=== PATIENT | male | born 1975 | race Caucasian/White ===

== ENCOUNTER 2024-03-07 15:08 | Inpatient (IN) | payer OTHER ==
[2024-03-07 18:34] VITALS: BMI 29.6
[2024-03-07] MEDS ORDERED: BISMUTH SUBSALICYLATE 524 MG/30 ML PO PRN (21:39)
[2024-03-07] MEDS ORDERED: LOPERAMIDE HCL 2 MG CAPSULE PO PRN (21:39)
[2024-03-07] MEDS ORDERED: ONDANSETRON *ODT* 4 MG TABLET SL PRN (21:39)
[2024-03-07] MEDS ORDERED: BENZONATATE 200 MG CAPSULE PO PRN (21:39)
[2024-03-07] MEDS ORDERED: ACETAMINOPHEN 325 MG TABLET (FP) PO PRN (21:39)
[2024-03-07] MEDS ORDERED: DICYCLOMINE HCL 10 MG CAPSULE PO PRN (21:39)
[2024-03-07] MEDS ORDERED: BENZOCAINE/MENTHOL (CHLORASEPTIC ) LOZENGE MM PRN (21:39)
[2024-03-07] MEDS ORDERED: MAGNESIUM HYDROX 2400MG/30ML ORAL SUSPENSION 30 ML CUP PO PRN (21:39)
[2024-03-07] MEDS ORDERED: NICOTINE POLACRILEX 2 MG GUM BUC PRN (21:39)
[2024-03-07] MEDS ORDERED: POLYETHYLENE GLYCOL (HEALTHYLAX) 3350 17 GM PACKET PO PRN (21:39)
[2024-03-07] MEDS ORDERED: NALOXONE HCL (KLOXXADO) 8 MG SPRAY NS PRN (21:39)
[2024-03-07] MEDS ORDERED: guaiFENesin 600 MG TABLET.ER (FP) PO PRN (21:39)
[2024-03-07] MEDS ORDERED: IBUPROFEN 400 MG TABLET (FP) PO PRN (21:39)
[2024-03-07] MEDS ORDERED: NALOXONE HCL 0.4 MG/ML VIAL IM PRN (21:39)
[2024-03-07] MEDS ORDERED: cloNIDine HCL 0.1 MG TABLET PO PRN (21:41)
[2024-03-07] MEDS ORDERED: methaDONE HCL 10 MG TABLET (FOR DETOX USE ONLY) ONE (22:21)
[2024-03-07] MEDS: methaDONE HCL 10 MG TABLET (FOR DETOX USE ONLY) PO ONE (22:23)
[2024-03-07] MEDS: diazePAM 5 MG TABLET PO SCH (23:14)
[2024-03-07] MEDS: THIAMINE 100 MG TABLET PO SCH (23:15)
[2024-03-07] MEDS: MELATONIN 5 MG TABLETS PO SCH (23:15)
[2024-03-08] MEDS: METHOCARBAMOL 500 MG TABLET PO PRN (05:32)
[2024-03-08] MEDS: PRENATAL VITAMINS W/ FOLIC ACID TABLET (FP) PO SCH (10:22)
[2024-03-08] MEDS: NICOTINE 21 MG/24 HOURS TOPICAL PATCH TD SCH (10:23)
[2024-03-08 10:26] LABS: HEMATOCRIT 36.5 % (35.4-49); HEMOGLOBIN 12.4 GM/dL (11.7-16.9); MCH 31.4 pg (25.7-33.7); MCHC 34.1 g/dl (32.0-35.9); MEAN CELL VOLUME 91.9 fl (80-96); MEAN PLT VOLUME 7.1 fl (7.5-11.1); PLATELET COUNT 365 10^3/uL (134-434); RBC 3.97 M/mm3 (4.00-5.60); RDW 13.3 % (11.9-15.9); WHITE BLOOD COUNT 9.7 K/mm3 (4.0-10.0)
[2024-03-08] MEDS: QUEtiapine FUMARATE 50 MG TABLET PO SCH (10:26)
[2024-03-08] MEDS: SERTRALINE HCL 50 MG TABLET (FP) PO SCH (10:26)
[2024-03-08 10:29] LABS: CHLORIDE 104 mmol/L (98-107); POTASSIUM 3.9 mmol/L (3.5-5.1); SODIUM 140 mmol/L (136-145)
[2024-03-08 10:35] LABS: BLOOD UREA NITROGEN 7.2 mg/dL (7-18); CREATININE 0.8 mg/dL (0.55-1.3); GLUCOSE,RANDOM 96 mg/dL (74-106)
[2024-03-08 10:36] LABS: SGPT/ALT 16 U/L (13-61)
[2024-03-08 10:37] LABS: ALBUMIN 3.1 g/dl (3.4-5.0)
[2024-03-08 10:38] LABS: BILIRUBIN,TOTAL 0.6 mg/dL (0.2-1); CALCIUM 9.2 mg/dL (8.5-10.1); TOT PROT 7.4 g/dl (6.4-8.2)
[2024-03-08 10:39] LABS: ALK PHOS 97 U/L (45-117); ANION GAP 5 mmol/L (4-13); CO2 31 mmol/L (21-32); SGOT/AST 24 U/L (15-37)
[2024-03-08 12:43] LABS: HIV INTERPRETATION NEGATIVE (NEGATIVE)
[2024-03-08] MEDS: IBUPROFEN 600 MG TABLET (FP) PO PRN (17:40)
[2024-03-08] MEDS: QUEtiapine FUMARATE 100 MG TABLET (FP) PO SCH (22:19)
[2024-03-08] MEDS: PRAZOSIN HCL 1 MG CAPSULE PO SCH (22:24)
[2024-03-09] MEDS: diazePAM 5 MG TABLET PO SCH (06:07)
[2024-03-09] MEDS: diazePAM 5 MG TABLET PO PRN (09:51)
[2024-03-09] MEDS: methaDONE HCL 10 MG TABLET (FOR DETOX USE ONLY) PO ONE (09:51)
[2024-03-10] MEDS: diazePAM 5 MG TABLET PO SCH (05:37)
[2024-03-10] MEDS: MAG HYDROX/AL HYDROX/SIMETH 30 ML UNIT-DOSE CUP PO PRN (19:07)
[2024-03-11] MEDS: diazePAM 5 MG TABLET PO ONE (05:39)
[2024-03-11] MEDS: methaDONE HCL 10 MG TABLET (FOR DETOX USE ONLY) PO ONE (09:58)
[2024-03-12] MEDS: hydrOXYzine PAMOATE 25 MG CAPSULE (FP) PO PRN (22:34)
[2024-03-13 07:03] VITALS: RESP 16
[2024-03-13 09:25] VITALS: BP 117/69; PULSE 110; TEMP 98.1
== END 2024-03-13 09:35 | disposition other institution (70) | DRG 773 ==
LOC: YASAS 15:08 → Y6N 22:34
PROVIDERS: ADMIT Allergy & Immunology; ATTEND Surgery
PROC: HZ2ZZZZ Detoxification Services for Substance Abuse Treatment (ICD-10-PCS; principal; 2024-03-07)
DX: F11.23 Opioid dependence with withdrawal (principal); F10.230 Alcohol dependence with withdrawal, uncomplicated; F13.230 Sedative, hypnotic or anxiolytic dependence with withdrawal, uncomplicated; F17.210 Nicotine dependence, cigarettes, uncomplicated; F19.282 Other psychoactive substance dependence with psychoactive substance-induced sleep disorder; F19.24 Other psychoactive substance dependence with psychoactive substance-induced mood disorder; F25.1 Schizoaffective disorder, depressive type; F90.9 Attention-deficit hyperactivity disorder, unspecified type; I10 Essential (primary) hypertension; Z62.810 Personal history of physical and sexual abuse in childhood; Z63.8 Other specified problems related to primary support group; Z86.19 Personal history of other infectious and parasitic diseases
CPT/HCPCS: 36415; 80053; 80305; 80307; 85027; 86780; 86803; 87389; 87522; 93005; 93010